=== PATIENT | male | born 1935 | race Caucasian/White ===

== ENCOUNTER 2019-04-28 12:12 | Inpatient (IN) ==
[2019-04-28] MEDS ORDERED: SODIUM CHLORIDE 0.9% 1,000 ML IV STA ×2 (13:04→13:13)
[2019-04-28 13:11] LABS: Basophils % 0.5 % (0.0-0.8); Eosinophils # 0.1 10*3/uL (0.0-0.87); Eosinophils % 1.4 % (0.00-10.9); Hematocrit 43.8 VOL% (42.0-52.0); Hemoglobin 14.8 GM/DL (14.0-18.0); Immature Granulocytes % 0.4 %; Immature Granulocytes Absolute 0.03 #; Lymphocytes # 1.3 10*3/uL (1.4-4.0); Lymphocytes % 15.3 % (21.2-54.2); Mean Corpuscular HGB Conc 33.8 GM/DL (32-36); Mean Corpuscular Volume 95.8 FL (87-102); Mean Platelet Volume 10.6 FL (9.6-12.0); Monocytes % 5.6 % (1.7-12.7); Neutrophils % 76.8 % (38.7-73.9); Platelet Count 145 T/CUMM (130-400); Red Blood Count 4.57 MC/CUMM (3.8-5.5); Red Cell Distribution Width 13.9 % (9.3-17.3); White Blood Count 8.6 T/CUMM (4-12)
[2019-04-28] MEDS ORDERED: ONDANSETRON 4 MG/2 ML VIAL IV STA (13:13)
[2019-04-28 13:29] LABS: Alanine Aminotransferase < 6 U/L (16-61); Albumin 3.2 G/DL (3.4-5.0); Alkaline Phosphatase 106 U/L (45-117); Aspartate Amino Transferase 16 U/L (0-37); Blood Urea Nitrogen 14 MG/DL (7-18); Calcium 8.9 MG/DL (8.5-10.1); Estimated Glom Filtration Rate 58 ML/MIN; Glucose 121 MG/DL (74-106); Osmolality,Calculated 284.1 MOS/KG (273-304); Total Protein 7.1 G/DL (6.4-8.3)
[2019-04-28 14:05] LABS: PT Patient Result 11.3 SECS (9.6-12.2)
[2019-04-28 15:14] LABS: Apearance,Urine CLEAR (Clear); Bilirubin,Urine Negative (Negative); Blood, Urine Small mg/dL (Negative); Glucose,Urine (UA) Negative (Negative); Hyaline Casts,Urine 1 /LPF (0-3); Ketones,Urine 5 mg/dL (Negative); Mucus,Urine Few /LPF (Occasional); Nitrite,Urine Negative (Negative); Protein,Urine Negative; RBC,Urine 3 /HPF (0-4); Squamous Epithelial Cell,Urine Occasional /HPF (0-10); Urine Color Yellow (Yellow); Urine Specific Gravity 1.044 (1.001-1.035); Urine Urobilinogen < 2.0 EU/DL (0.2-1.0); WBC,Urine 1 /HPF (0-6)
[2019-04-28] MEDS ORDERED: ONDANSETRON 4 MG/2 ML VIAL IV PRN (15:23)
[2019-04-28] MEDS ORDERED: DOCUSATE SODIUM 100 MG CAPSULE PO PRN (15:23)
[2019-04-28] MEDS ORDERED: ACETAMINOPHEN 325 MG TABLET PO PRN (15:23)
[2019-04-28 16:18] LABS: Risk Ratio 2.71; Thyroid Stimulating Hormone 2.24 uIU/ml (0.358-3.74); VLDL CHOLESTEROL 31.6 MG/DL
[2019-04-28] MEDS: SODIUM CHLORIDE 0.9% 1,000 ML IV SCH (17:06)
[2019-04-28] MEDS: CARBIDOPA/LEVODOPA 25-100 MG TABLET PO SCH (18:56)
[2019-04-28] MEDS: ENOXAPARIN 40 MG/0.4 ML SYRINGE SUBCUT SCH (18:56)
[2019-04-28] MEDS: hydrALAZINE 20 MG/1 ML VIAL IV PRN (18:57)
[2019-04-28] MEDS: DONEPEZIL 10 MG TABLET PO SCH (20:43)
[2019-04-28] MEDS: MEMANTINE 10 MG TABLET PO SCH (20:43)
[2019-04-28] MEDS: METOPROLOL TARTRATE 50 MG TABLET PO SCH (20:44)
[2019-04-28] MEDS: ASPIRIN EC 81 MG TABLET PO SCH (20:44)
[2019-04-28] MEDS: ATORVASTATIN 40 MG TABLET PO SCH (20:44)
[2019-04-28] MEDS: MAGNESIUM OXIDE 400 MG TABLET PO SCH (20:44)
[2019-04-29 05:15] LABS: Basophils # 0.1 10*3/uL (0.0-0.2); Basophils % 0.5 % (0.0-0.8); Eosinophils # 0.2 10*3/uL (0.0-0.87); Eosinophils % 1.6 % (0.00-10.9); Hemoglobin 12.9 GM/DL (14.0-18.0); Immature Granulocytes % 0.4 %; Immature Granulocytes Absolute 0.04 #; Lymphocytes # 2.7 10*3/uL (1.4-4.0); Lymphocytes % 28.7 % (21.2-54.2); Mean Corpuscular HGB Conc 33.9 GM/DL (32-36); Mean Platelet Volume 10.7 FL (9.6-12.0); Monocytes % 7.6 % (1.7-12.7); Neutrophils % 61.2 % (38.7-73.9); Platelet Count 116 T/CUMM (130-400); Red Cell Distribution Width 13.9 % (9.3-17.3); White Blood Count 9.4 T/CUMM (4-12)
[2019-04-29 05:34] LABS: Calcium 8.3 MG/DL (8.5-10.1); Osmolality,Calculated 285.8 MOS/KG (273-304)
[2019-04-29] MEDS: SODIUM CHLORIDE 0.9% 1,000 ML IV SCH (06:15)
[2019-04-29] MEDS: MAGNESIUM OXIDE 400 MG TABLET PO SCH ×2 (09:19→20:15)
[2019-04-29] MEDS: LOSARTAN 50 MG TABLET PO SCH (09:19)
[2019-04-29] MEDS: LEVOTHYROXINE 150 MCG TABLET PO SCH (09:19)
[2019-04-29] MEDS: PANTOPRAZOLE 40 MG TABLET PO SCH (09:20)
[2019-04-29] MEDS: SERTRALINE 25 MG TABLET PO SCH (09:20)
[2019-04-29] MEDS: MEMANTINE 10 MG TABLET PO SCH ×2 (09:20→20:15)
[2019-04-29] MEDS: CARBIDOPA/LEVODOPA 25-100 MG TABLET PO SCH ×3 (09:20→19:22)
[2019-04-29] MEDS: METOPROLOL TARTRATE 50 MG TABLET PO SCH ×2 (17:18→20:15)
[2019-04-29] MEDS: DONEPEZIL 10 MG TABLET PO SCH (20:15)
[2019-04-29] MEDS: ASPIRIN EC 81 MG TABLET PO SCH (20:15)
[2019-04-29] MEDS: ATORVASTATIN 40 MG TABLET PO SCH (20:15)
[2019-04-29] MEDS: ENOXAPARIN 40 MG/0.4 ML SYRINGE SUBCUT SCH (20:16)
[2019-04-30] MEDS: SODIUM CHLORIDE 0.9% 1,000 ML IV SCH ×3 (05:19→20:00)
[2019-04-30] MEDS: LEVOTHYROXINE 150 MCG TABLET PO SCH (06:05)
[2019-04-30 06:06] LABS: Basophils % 0.5 % (0.0-0.8); Eosinophils # 0.2 10*3/uL (0.0-0.87); Hemoglobin 12.7 GM/DL (14.0-18.0); Immature Granulocytes % 0.1 %; Immature Granulocytes Absolute 0.01 #; Lymphocytes # 3.2 10*3/uL (1.4-4.0); Lymphocytes % 43.6 % (21.2-54.2); Mean Corpuscular HGB Conc 33.4 GM/DL (32-36); Mean Corpuscular Volume 96.9 FL (87-102); Mean Platelet Volume 10.6 FL (9.6-12.0); Monocytes % 8.3 % (1.7-12.7); Neutrophils % 44.5 % (38.7-73.9); Platelet Count 115 T/CUMM (130-400); Red Blood Count 3.92 MC/CUMM (3.8-5.5); White Blood Count 7.3 T/CUMM (4-12)
[2019-04-30 06:31] LABS: Calcium 8.4 MG/DL (8.5-10.1); Osmolality,Calculated 284.8 MOS/KG (273-304)
[2019-04-30] MEDS: METOPROLOL TARTRATE 50 MG TABLET PO SCH ×2 (08:56→22:02)
[2019-04-30] MEDS: MAGNESIUM OXIDE 400 MG TABLET PO SCH ×2 (08:57→22:03)
[2019-04-30] MEDS: PANTOPRAZOLE 40 MG TABLET PO SCH (08:58)
[2019-04-30] MEDS: CARBIDOPA/LEVODOPA 25-100 MG TABLET PO SCH ×3 (08:58→18:26)
[2019-04-30] MEDS: SERTRALINE 25 MG TABLET PO SCH (08:58)
[2019-04-30] MEDS: LOSARTAN 50 MG TABLET PO SCH (08:58)
[2019-04-30] MEDS: MEMANTINE 10 MG TABLET PO SCH ×2 (08:59→22:01)
[2019-04-30] MEDS: ENOXAPARIN 40 MG/0.4 ML SYRINGE SUBCUT SCH (22:01)
[2019-04-30] MEDS: ASPIRIN EC 81 MG TABLET PO SCH (22:02)
[2019-04-30] MEDS: ATORVASTATIN 40 MG TABLET PO SCH (22:03)
[2019-04-30] MEDS: DONEPEZIL 10 MG TABLET PO SCH (22:03)
[2019-05-01 05:16] LABS: Basophils # 0.1 10*3/uL (0.0-0.2); Basophils % 0.8 % (0.0-0.8); Eosinophils # 0.2 10*3/uL (0.0-0.87); Eosinophils % 3.5 % (0.00-10.9); Hematocrit 36.4 VOL% (42.0-52.0); Hemoglobin 12.3 GM/DL (14.0-18.0); Immature Granulocytes % 0.3 %; Immature Granulocytes Absolute 0.02 #; Lymphocytes # 2.6 10*3/uL (1.4-4.0); Lymphocytes % 39.1 % (21.2-54.2); Mean Corpuscular HGB Conc 33.8 GM/DL (32-36); Mean Corpuscular Volume 95.8 FL (87-102); Monocytes % 8.5 % (1.7-12.7); Neutrophils % 47.8 % (38.7-73.9); Platelet Count 113 T/CUMM (130-400); Red Cell Distribution Width 14.1 % (9.3-17.3); White Blood Count 6.6 T/CUMM (4-12)
[2019-05-01 05:49] LABS: Osmolality,Calculated 284.8 MOS/KG (273-304)
[2019-05-01] MEDS: LEVOTHYROXINE 150 MCG TABLET PO SCH (06:41)
[2019-05-01] MEDS: LOSARTAN 50 MG TABLET PO SCH (08:34)
[2019-05-01] MEDS: METOPROLOL TARTRATE 50 MG TABLET PO SCH ×2 (08:34→20:37)
[2019-05-01] MEDS: PANTOPRAZOLE 40 MG TABLET PO SCH (08:34)
[2019-05-01] MEDS: MAGNESIUM OXIDE 400 MG TABLET PO SCH ×2 (08:34→20:37)
[2019-05-01] MEDS: CARBIDOPA/LEVODOPA 25-100 MG TABLET PO SCH ×3 (08:35→17:41)
[2019-05-01] MEDS: SERTRALINE 25 MG TABLET PO SCH (08:35)
[2019-05-01] MEDS: MEMANTINE 10 MG TABLET PO SCH ×2 (08:35→20:37)
[2019-05-01] MEDS: SODIUM CHLORIDE 0.9% 1,000 ML IV SCH (08:37)
[2019-05-01] MEDS ORDERED: CYANOCOBALAMIN 1000 MCG/1 ML VIAL SUBCUT SCH (10:00)
[2019-05-01] MEDS ORDERED: ERGOCALCIFEROL 50,000 UNIT CAPSULE PO SCH (10:00)
[2019-05-01] MEDS: hydrALAZINE 20 MG/1 ML VIAL IV PRN (13:18)
[2019-05-01] MEDS: DONEPEZIL 10 MG TABLET PO SCH (20:36)
[2019-05-01] MEDS: ASPIRIN EC 81 MG TABLET PO SCH (20:37)
[2019-05-01] MEDS: ATORVASTATIN 40 MG TABLET PO SCH (20:37)
[2019-05-01] MEDS: ENOXAPARIN 40 MG/0.4 ML SYRINGE SUBCUT SCH (20:38)
[2019-05-02] MEDS: SODIUM CHLORIDE 0.9% 1,000 ML IV SCH (00:24)
[2019-05-02] MEDS: LEVOTHYROXINE 150 MCG TABLET PO SCH (06:38)
[2019-05-02] MEDS: SERTRALINE 25 MG TABLET PO SCH (08:28)
[2019-05-02] MEDS: CARBIDOPA/LEVODOPA 25-100 MG TABLET PO SCH ×3 (08:29→17:01)
[2019-05-02] MEDS: MAGNESIUM OXIDE 400 MG TABLET PO SCH ×2 (08:29→21:20)
[2019-05-02] MEDS: PANTOPRAZOLE 40 MG TABLET PO SCH (08:29)
[2019-05-02] MEDS: LOSARTAN 50 MG TABLET PO SCH (08:29)
[2019-05-02] MEDS: CYANOCOBALAMIN 1000 MCG/1 ML VIAL IM SCH (08:30)
[2019-05-02] MEDS: METOPROLOL TARTRATE 50 MG TABLET PO SCH ×3 (08:45→21:20)
[2019-05-02] MEDS: MEMANTINE 10 MG TABLET PO SCH ×2 (08:49→21:20)
[2019-05-02] MEDS: ENOXAPARIN 40 MG/0.4 ML SYRINGE SUBCUT SCH (21:19)
[2019-05-02] MEDS: ATORVASTATIN 40 MG TABLET PO SCH (21:19)
[2019-05-02] MEDS: DONEPEZIL 10 MG TABLET PO SCH (21:20)
[2019-05-02] MEDS: ASPIRIN EC 81 MG TABLET PO SCH (21:20)
[2019-05-03] MEDS: hydrALAZINE 20 MG/1 ML VIAL IV PRN (00:36)
[2019-05-03] MEDS: LEVOTHYROXINE 150 MCG TABLET PO SCH (05:37)
[2019-05-03] MEDS: LOSARTAN 50 MG TABLET PO SCH (08:39)
[2019-05-03] MEDS: METOPROLOL TARTRATE 50 MG TABLET PO SCH (08:39)
[2019-05-03] MEDS: CARBIDOPA/LEVODOPA 25-100 MG TABLET PO SCH (08:39)
[2019-05-03] MEDS: SERTRALINE 25 MG TABLET PO SCH (08:40)
[2019-05-03] MEDS: MAGNESIUM OXIDE 400 MG TABLET PO SCH (08:40)
[2019-05-03] MEDS: PANTOPRAZOLE 40 MG TABLET PO SCH (08:40)
[2019-05-03] MEDS: CYANOCOBALAMIN 1000 MCG/1 ML VIAL IM SCH (08:40)
[2019-05-03] MEDS: MEMANTINE 10 MG TABLET PO SCH (08:40)
[2019-05-03 11:57] VITALS: BP 176/82
[2019-05-03] MEDS ORDERED: TUBERCULIN SKIN TEST 0.1 ML SYRINGE INTRADERM ONE (12:00)
[2019-05-03] MEDS ORDERED: METOPROLOL TARTRATE 25 MG TABLET PO SCH (21:00)
[2019-05-06 01:32] LABS: CDT Result Negative (Negative); CDT Specimen Source STOOL
== END 2019-05-03 15:02 | disposition swing bed (61) | DRG 57 ==
LOC: EDBD → EDUNIT# → N.ED 12:12 → SUATTDRO 14:56 → N.EDINP 14:56 → N.2E 16:31
PROVIDERS: ADMIT Emergency Medicine; ATTEND Family Medicine